=== PATIENT | male | born 1935 | race Caucasian/White ===

== ENCOUNTER 2017-06-20 13:48 | Emergency (ER) | payer MEDICARE, OTHER ==
[~2017-06-20] VITALS: Ht 182.9 cm; Wt 77.9 kg
[~2017-06-20 13:48] MED LIST: CARDIZEM CD240 MG PO; FLOMAX0.4 MG PO; LEVAQUIN500 MG PO; LIPITOR40 MG PO; LISINOPRIL20 MG PO; MACROBID 100 M100 MG; METFORMIN HCL1000 MG PO; METOPROLOL SUCC50 MG PO; PYRIDIUM200 MG PO; TOPROL XL50 MG PO; WARFARIN PO; XARELTO10 MG PO; ZITHROMAX250 MG
[2017-06-20] MEDS ORDERED: ACETAMINOPHEN325 M1 PO (14:51)
[2017-06-20] MEDS ORDERED: CRANBERRY500 M3 PO (14:53)
[2017-06-20] MEDS ORDERED: DULCOLAX10 MG PR (14:54)
[2017-06-20] MEDS ORDERED: FLEET ENEMA133 ML PR (14:55)
[2017-06-20] MEDS ORDERED: MAGNESIUM CITR296 ML PO (14:57)
[2017-06-20] MEDS ORDERED: MILK OF MA400 MG/5 M PO (14:58)
[2017-06-20] MEDS ORDERED: MIRALAX17 GM PO (14:59)
[2017-06-20] MEDS ORDERED: MULTIVITAMINS1 EAC7 PO (15:00)
[2017-06-20] MEDS ORDERED: REMERON15 MG PO (15:03)
[2017-06-20] MEDS ORDERED: SENNA-S TABLET1 EACH PO (15:04)
[2017-06-20] MEDS ORDERED: TERAZOSIN HCL5 MG PO (15:05)
[2017-06-20] MEDS ORDERED: ZINC50 M2 PO (15:07)
[2017-06-20] MEDS ORDERED: ZOLOFT100 MG PO (15:07)
[2017-06-20] MEDS ORDERED: CEFDINIR300 MG PO (15:08)
[2017-06-20] MEDS ORDERED: IMODIUM A-D2 M2 PO (15:09)
== END 2017-06-20 15:29 | disposition home or self-care (01) ==
LOC: ED 13:48
DX: S42.001D Fracture of unspecified part of right clavicle, subsequent encounter for fracture with routine healing (principal); I48.91 Unspecified atrial fibrillation; E78.5 Hyperlipidemia, unspecified; I10 Essential (primary) hypertension; Z86.73 Personal history of transient ischemic attack (TIA), and cerebral infarction without residual deficits; Z79.899 Other long term (current) drug therapy; X58.XXXD Exposure to other specified factors, subsequent encounter
CPT/HCPCS: 99282